=== PATIENT | male | born 1935 | race Hispanic/Latino ===

== ENCOUNTER 2023-07-06 05:45 | Day surgery (SDC) | payer OTHER, MEDICARE ==
[2023-07-06] VITALS (11 sets, daily range): BP systolic 153–173; BP diastolic 59–78; PULSE 49–56; RESP 12–16
[~2023-07-06] VITALS: Ht 170.2 cm; Wt 62.1 kg
[~2023-07-06 05:45] MED LIST: ATOR40TA71 PO; FAMO40TA7 PO; LATA2.5D14 OU; LISI20TA24 PO; METF-446 PO; METO-391 PO; TAMS-1 PO
[2023-07-06] MEDS: 0.9%NACL 1000ML 1,000 ML IV ONE (06:42)
[2023-07-06] MEDS ORDERED: PROPOFOL 10 MG/ML 20ML VIAL IV ONE ×2 (07:19→07:43)
[2023-07-06] MEDS ORDERED: LIDOCAINE HCL 1% 20 ML VIAL ONE (07:20)
== END 2023-07-06 08:55 | disposition home or self-care (01) ==
LOC: DAH 05:45 → ENDO 05:45
PROVIDERS: ATTEND Internal Medicine
DX: R93.5 Abnormal findings on diagnostic imaging of other abdominal regions, including retroperitoneum (principal); K86.1 Other chronic pancreatitis; R63.4 Abnormal weight loss; K29.50 Unspecified chronic gastritis without bleeding; K86.89 Other specified diseases of pancreas; I10 Essential (primary) hypertension; E78.00 Pure hypercholesterolemia, unspecified; H91.90 Unspecified hearing loss, unspecified ear; E13.9 Other specified diabetes mellitus without complications; E78.9 Disorder of lipoprotein metabolism, unspecified; Z79.84 Long term (current) use of oral hypoglycemic drugs; Z68.21 Body mass index [BMI] 21.0-21.9, adult
CPT/HCPCS: 43237; 82948 ×2; 43239; J7030 ×2; J2704; A4620; A4215 ×2; A4223; A7002; A4222; A4221; A4663; A4606; 43259; J3490